=== PATIENT | male | born 1955 | race Caucasian/White ===

== ENCOUNTER 2018-06-02 08:00 | Outpatient (CLI) | payer MEDICARE ==
[2018-06-02 17:57] LABS: BASOPHILS % (AUTO) 0.5 %; EOSINOPHILS # (AUTO) 0.1 10^3/uL (0.0-0.7); EOSINOPHILS % (AUTO) 3.2 %; HGB - HEMOGLOBIN 14.3 g/dL (14.0-18.0); LYMPHOCYTES # (AUTO) 0.7 10^3/uL (1.5-3.5); LYMPHOCYTES % (AUTO) 18.7 %; MEAN CORPUSCULAR HEMOGLOBIN 32.7 pg (27.0-31.0); MEAN CORPUSCULAR HGB CONC 32.3 g/dL (32.0-36.0); MEAN PLATELET VOLUME 10.4 fL (7.4-11.4); MONOCYTES # (AUTO) 0.4 10^3/uL (0.0-1.0); MONOCYTES % (AUTO) 12.1 %; NEUTROPHILS # (AUTO) 2.4 10^3/uL (1.5-6.6); NEUTROPHILS % (AUTO) 65.5 %; PLT - PLATELET COUNT 130 10^3/uL (130-450); RED BLOOD COUNT 4.37 10^6/uL (4.70-6.10); WHITE BLOOD COUNT 3.6 x10^3/uL (4.8-10.8)
[2018-06-02 18:29] LABS: PSA FREE 0.1 ng/mL (0.16-2.81)
[2018-06-02 18:30] LABS: PSA TOTAL 0.297 ng/mL (0.000-2.000)
[2018-06-02 18:32] LABS: HB2 TOTAL 15.3 g/dL; HEMOGLOBIN A1C 2.12 g/dL; HEMOGLOBIN A1C % 14.8 % (4.6-6.2)
[2018-06-02 19:11] LABS: ALBUMIN 3.9 g/dL (3.2-5.5); ALBUMIN/GLOBULIN RATIO 1.5 (1.0-2.2); ALKALINE PHOSPHATASE 115 IU/L (42-121); ALT ALANINE AMINOTRANSFERASE 33 IU/L (10-60); AST ASPARTATE AMINOTRANSFERASE 27 IU/L (10-42); BILIRUBIN,TOTAL 1.1 mg/dL (0.2-1.0); BUN - BLOOD UREA NITROGEN 26 mg/dL (6-20); CALCIUM 9.6 mg/dL (8.5-10.3); CARBON DIOXIDE - CO2 31 mmol/L (21-32); CHLORIDE 92 mmol/L (101-111); CHOL/HDL RATIO 4.2 (<5.0); CHOLESTEROL 239 mg/dL; CREATININE 1.1 mg/dL (0.6-1.2); GFR - MDRD 67 (>89); HDL CHOLESTEROL 57 mg/dL; LDL CHOLESTEROL,CALCULATED 136 mg/dL; LDL/HDL RATIO 2.4 (<3.6); SODIUM 133 mmol/L (135-145); TOTAL PROTEIN 6.5 g/dL (6.7-8.2); VLDL CHOLESTEROL 46 mg/dL
[2018-06-02 19:12] LABS: GLUCOSE 717 mg/dL (70-100)
== END 2018-06-02 23:59 | disposition home or self-care (01) ==
LOC: LAB.S 08:00
PROVIDERS: ATTEND Nurse Practitioner
DX: E11.9 Type 2 diabetes mellitus without complications (principal); E78.5 Hyperlipidemia, unspecified; Z13.9 Encounter for screening, unspecified; R68.82 Decreased libido
CPT/HCPCS: 36415; 80053; 80061; 82043; 83036; 83721; 84153; 84154; 84403; 84443; 85025

== ENCOUNTER 2018-06-02 19:53 | Outpatient (CLI) | payer MEDICARE | END 2018-06-02 19:54 | disposition EMS.NT | LOC: EMS 19:53 | PROVIDERS: ATTEND Surgery | DX: R73.9 Hyperglycemia, unspecified (principal) ==

== ENCOUNTER 2018-06-02 20:33 | Emergency (ER) | payer MEDICARE ==
[2018-06-02 21:03] LABS: BILIRUBIN,URINE NEGATIVE (NEGATIVE); GLUCOSE, URINE (UA) >=1000 mg/dL (NEGATIVE); KETONES,URINE (UA) TRACE mg/dL (NEGATIVE); LEUKOCYTE ESTERASE, URINE NEGATIVE (NEGATIVE); NITRITE,URINE NEGATIVE (NEGATIVE); OCCULT BLOOD,URINE TRACE-INTA (NEGATIVE); PROTEIN,URINE NEGATIVE (NEGATIVE); UROBILINOGEN,URINE 0.2 (NORMAL) E.U./dL (NORMAL)
[2018-06-02 21:07] LABS: BASOPHILS % (AUTO) 0.5 %; EOSINOPHILS # (AUTO) 0.1 10^3/uL (0.0-0.7); EOSINOPHILS % (AUTO) 2.1 %; HGB - HEMOGLOBIN 15.2 g/dL (14.0-18.0); LYMPHOCYTES % (AUTO) 26.6 %; MEAN CORPUSCULAR HEMOGLOBIN 32.2 pg (27.0-31.0); MEAN CORPUSCULAR HGB CONC 32.6 g/dL (32.0-36.0); MEAN CORPUSCULAR VOLUME 98.8 fL (80.0-94.0); MEAN PLATELET VOLUME 9.6 fL (7.4-11.4); MONOCYTES # (AUTO) 0.4 10^3/uL (0.0-1.0); MONOCYTES % (AUTO) 10.9 %; NEUTROPHILS # (AUTO) 2.2 10^3/uL (1.5-6.6); NEUTROPHILS % (AUTO) 59.9 %; PLT - PLATELET COUNT 156 10^3/uL (130-450); RED BLOOD COUNT 4.71 10^6/uL (4.70-6.10); RED CELL DISTRIBUTION WIDTH 12.7 % (12.0-15.0); WHITE BLOOD COUNT 3.6 x10^3/uL (4.8-10.8)
[2018-06-02 21:08] LABS: CLARITY,URINE CLEAR (CLEAR)
[2018-06-02 21:24] LABS: ALBUMIN 4.6 g/dL (3.2-5.5); ALBUMIN/GLOBULIN RATIO 1.4 (1.0-2.2); BILIRUBIN,TOTAL 0.7 mg/dL (0.2-1.0); CREATININE 1.1 mg/dL (0.6-1.2); TOTAL PROTEIN 7.8 g/dL (6.7-8.2)
[2018-06-02 21:31] LABS: CALCIUM 9.6 mg/dL (8.5-10.3)
[2018-06-02] MEDS ORDERED: SODIUM CHLORIDE 0.9% 1,000 ML IV ONE (21:54)
[2018-06-02] MEDS ORDERED: INSULIN REGULAR HUMAN 100 UNIT/1 ML 10 ML MDV IVP STA (21:54)
--- NOTE | 2018-06-02 21:54 | ED Physician Documentation ---
PD HPI NVD - Stated complaint Stated Complaint: SENT BY DOC - Chief complaint Chief Complaint: General - History obtained from History obtained from: Patient - History of Present Illness Timing - onset: Yesterday (he has diabetes and was off meds for 1-2 months due to insurance issue, and resumed care yesterday. Resumed Metformin and got Rx for Lantus. Just took first dose today of Metformin. 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 He is not vomiting. NO abd pain. Has polyuria and polydipsia.) Timing - duration: Weeks (he has had symptoms of high blood sugar for weeks, since off meds.) Timing - details: Gradual onset, Waxing and waning Associated symptoms: No: Fever, Abdominal pain, Dysuria Recently seen: Clinic (with resumption of diabetes meds starting today) Review of Systems Constitutional: denies: Fever, Chills, Myalgias Nose: denies: Rhinorrhea / runny nose, Congestion Throat: denies: Sore throat Respiratory: denies: Cough GI: denies: Abdominal Pain, Vomiting, Diarrhea : reports: Frequency (with thirsty alot). denies: Dysuria Musculoskeletal: denies: Neck pain, Back pain Neurologic: reports: Generalized weakness. denies: Altered mental status, Headache Endocrine: reports: Weight loss PD PAST MEDICAL HISTORY - Past Medical History Cardiovascular: None Respiratory: None Neuro: None Endocrine/Autoimmune: Type 2 diabetes - Allergies Allergies/Adverse Reactions: Allergies Allergy/AdvReac Type Severity Reaction Status Date / Time No Known Drug Allergies Allergy Verified 06/02/18 20:44 PD ED PE NORMAL - Vitals Vital signs reviewed: Yes - General General: Alert and oriented X 3, No acute distress, Well developed/nourished - HEENT HEENT: Ears normal, Pharynx benign - Neck Neck: Supple, no meningeal sign, No adenopathy - Cardiac Cardiac: RRR, No murmur - Respiratory Respiratory: Clear bilaterally - Abdomen Abdomen: Soft, Non tender - Back Back: No CVA TTP - Derm Derm: Normal color, Warm and dry - Extremities Extremities: No edema - Neuro Neuro: Alert and oriented X 3, No motor deficit, Normal speech Results - Vitals Vitals: Vital Signs - 24 hr 06/02/18 06/02/18 06/02/18 20:37 20:58 22:56 Temperature 36.5 C 36.7 C Heart Rate 87 80 Respiratory 16 18 15 Rate Blood Pressure 125/57 L 124/78 O2 Saturation 100 99 Oxygen O2 Source Room air - Labs Labs: Laboratory Tests 06/02/18 06/02/18 06/02/18 20:34 20:44 20:54 WBC 3.6 L RBC 4.71 Hgb 15.2 Hct 46.5 MCV 98.8 H MCH 32.2 H MCHC 32.6 RDW 12.7 Plt Count 156 MPV 9.6 Neut # (Auto) 2.2 Lymph # (Auto) 1.0 L [place] # (Auto) 0.4 Eos # (Auto) 0.1 Baso # (Auto) 0.0 Absolute Nucleated RBC 0.01 Nucleated RBC % 0.2 Sodium Potassium Chloride Carbon Dioxide Anion Gap BUN Creatinine Estimated GFR (MDRD) Glucose POC Whole Bld Glucose 527 H* Calcium Total Bilirubin AST ALT Alkaline Phosphatase Total Protein Albumin Globulin Albumin/Globulin Ratio Lipase Urine Color Urine Clarity Urine pH Ur Specific [place] Urine Protein Urine Glucose (UA) Urine Ketones Urine Occult Blood Urine Nitrite Urine Bilirubin Urine Urobilinogen Ur Leukocyte Esterase Ur Microscopic Review Urine Culture Comments Serum Ketones NEGATIVE 06/02/18 06/02/18 06/02/18 20:54 20:54 22:51 WBC RBC Hgb Hct MCV MCH MCHC RDW Plt Count MPV Neut # (Auto) Lymph # (Auto) [place] # (Auto) Eos # (Auto) Baso # (Auto) Absolute Nucleated RBC Nucleated RBC % Sodium 130 L Potassium 4.4 Chloride 87 L Carbon Dioxide 30 Anion Gap 13.0 BUN 26 H Creatinine 1.1 Estimated GFR (MDRD) 67 L Glucose 575 H* POC Whole Bld Glucose 350 H Calcium 9.6 Total Bilirubin 0.7 AST 38 ALT 37 Alkaline Phosphatase 129 H Total Protein 7.8 Albumin 4.6 Globulin 3.2 Albumin/Globulin Ratio 1.4 Lipase 43 Urine Color YELLOW Urine Clarity CLEAR Urine pH 5.0 Ur Specific [place] 1.010 Urine Protein NEGATIVE Urine Glucose (UA) >=1000 H Urine Ketones TRACE Urine Occult Blood TRACE-INTA Urine Nitrite NEGATIVE Urine Bilirubin NEGATIVE Urine Urobilinogen 0.2 (NORMAL) Ur Leukocyte Esterase NEGATIVE Ur Microscopic Review NOT INDICATED Urine Culture Comments NOT INDICATED Serum Ketones PD MEDICAL DECISION MAKING - ED course Complexity details: reviewed results, considered differential (not acidotic based on outpt labs and can recheck that on labs here. Can check for ketones. Can give some IV fluids and small insulin to get into reasonable range (200-300 or so).), d/w patient Departure - Departure Disposition: 01 Home, Self Care Clinical Impression: Hyperglycemia due to type 2 diabetes mellitus Qualifiers: Diabetes mellitus jail insulin use: unspecified jail insulin use status Qualified Code(s): E11.65 - Type 2 diabetes mellitus with hyperglycemia Condition: Stable Record reviewed to determine appropriate education?: Yes Instructions: ED Hyperglycemia Diabetic Comments: I would take just 5 units of your Lantus tonight since we did give you some insulin here. Drink lots of fluids. Assume your prescribed medications. Take your directed dose of Lantus 10 units tomorrow. Follow-up with your primary care later this week. Discharge Date/Time: 06/02/18 23:08
[2018-06-02 22:57] VITALS: BP 124/78
== END 2018-06-02 23:08 | disposition home or self-care (01) ==
LOC: ED 20:33
DX: E11.65 Type 2 diabetes mellitus with hyperglycemia (principal); E78.5 Hyperlipidemia, unspecified; Z13.9 Encounter for screening, unspecified; R68.82 Decreased libido
CPT/HCPCS: 36415; 80061; 81003; 82009; 82043; 83036; 83690; 84153; 84154; 84403; 96360; 99283; J1815; 80053; 81001; 83721; 84443; 85025; 87086

== ENCOUNTER 2018-08-11 08:00 | Outpatient (CLI) | payer MEDICARE ==
[2018-08-11 17:49] LABS: BUN - BLOOD UREA NITROGEN 36 mg/dL (6-20); CALCIUM 9.2 mg/dL (8.5-10.3); CARBON DIOXIDE - CO2 29 mmol/L (21-32); CHLORIDE 103 mmol/L (101-111); CHOL/HDL RATIO 2.7 (<5.0); CHOLESTEROL 142 mg/dL; CREATININE 1.1 mg/dL (0.6-1.2); GFR - MDRD 67 (>89); GLUCOSE 191 mg/dL (70-100); HDL CHOLESTEROL 52 mg/dL; LDL CHOLESTEROL,CALCULATED 72 mg/dL; LDL/HDL RATIO 1.4 (<3.6); SODIUM 140 mmol/L (135-145); VLDL CHOLESTEROL 18 mg/dL
[2018-08-11 18:48] LABS: HEMOGLOBIN A1C 1.03 g/dL; HEMOGLOBIN A1C % 8.9 % (4.6-6.2)
== END 2018-08-11 23:59 | disposition home or self-care (01) ==
LOC: LAB.S 08:00
PROVIDERS: ATTEND Nurse Practitioner
DX: E11.9 Type 2 diabetes mellitus without complications (principal); E78.5 Hyperlipidemia, unspecified
CPT/HCPCS: 36415; 80048; 80061; 83036; 83721